=== PATIENT | male | born 1970 | race Caucasian/White ===

== ENCOUNTER 2017-06-03 09:53 | Emergency (ER) | payer OTHER ==
[2017-06-03] MEDS ORDERED: ONDANSETRON ODT 4 MG TAB ONE (10:33)
[2017-06-03] MEDS ORDERED: MORPHINE SULFATE 4 MG/1ML SYG ONE ×2 (10:33→10:36)
== END 2017-06-03 10:50 | disposition home or self-care (01) ==
LOC: EDH 09:53
DX: M54.5 Low back pain (principal); Z90.49 Acquired absence of other specified parts of digestive tract; Z98.890 Other specified postprocedural states; Z72.0 Tobacco use
CPT/HCPCS: 96372; 99283; J2270 ×2

== ENCOUNTER 2018-03-14 18:20 | Emergency (ER) | payer OTHER | END 2018-03-14 22:09 | disposition left against medical advice (07) | LOC: EDH 18:20 | CPT/HCPCS: 99281 ==

== ENCOUNTER 2018-09-23 20:20 | Emergency (ER) | payer OTHER ==
[2018-09-23] MEDS ORDERED: LIDOCAINE 5% TOPICAL PATCH TP ONE (20:52)
[2018-09-23] MEDS ORDERED: DEXAMETHASONE SOD PHOSPHATE 10MG/ML 1ML VIAL ONE (20:53)
[2018-09-23] MEDS ORDERED: KETOROLAC TROMETHAMINE 60 MG/2 ML VIAL ONE (20:53)
== END 2018-09-23 21:36 | disposition home or self-care (01) ==
LOC: EDH 20:20
DX: G89.29 Other chronic pain (principal); M54.5 Low back pain; F41.9 Anxiety disorder, unspecified; F32.9 Major depressive disorder, single episode, unspecified; F43.10 Post-traumatic stress disorder, unspecified; Z87.891 Personal history of nicotine dependence
CPT/HCPCS: 72100; 96372 ×2; 99284; J1100; J1885

== ENCOUNTER → 2021-08-29 | Emergency (ER) | payer OTHER | END | disposition left against medical advice (07) | LOC: EDH 19:17 | DX: R42 Dizziness and giddiness (principal); Z53.21 Procedure and treatment not carried out due to patient leaving prior to being seen by health care provider ==